=== PATIENT | male | born 1935 | race Caucasian/White ===

== ENCOUNTER 2017-08-28 00:36 | Inpatient (IN) | payer MEDICARE, BC ==
[2017-08-28 01:10] LABS: CH 31.3; CHCM 33.8; HCT 45.6 % (39.0-53.0); HDW 2.18; MCH 30.6 pg (25.0-35.0); MCHC 32.9 g/dL (31.0-37.0); MCV 92.9 fL (80.0-100.0); Mean Platelet Volume 7.6; RBC 4.91 m/uL (4.30-5.90); RDW 15.5 % (11.5-15.5); WBC 11.3 k/uL (3.8-10.6)
--- NOTE | 2017-08-28 01:15 | ED ---
General Adult HPI - General Chief complaint: Chest Pain Stated complaint: abd pain,chest pain Time Seen by Provider: 08/28/17 00:40 Source: patient, family, RN notes reviewed Mode of arrival: wheelchair Limitations: no limitations - History of Present Illness Initial comments: This is an 10-year-old male who presents emergency department with past history significant for CVA. Patient has a difficult time speaking since he's had his stroke. He has a very poor historian because of this. According to the son he woke up tonight complaining of some abdominal discomfort and according to son seems somewhat short of breath. Patient continues to state he has some upper abdominal discomfort. Patient denies any nausea or vomiting patient denies any diarrhea. Patient states the pain is not that bad at this time. Patient states he still feels a little short of breath. Patient denies any fever chills or cough. Patient denies headache patient denies numbness weakness. - Related Data Allergies Allergy/AdvReac Type Severity Reaction Status Date / Time No Known Allergies Allergy Verified 08/28/17 00:46 Review of Systems ROS Statement: Those systems with pertinent positive or pertinent negative responses have been documented in the HPI. ROS Other: All systems not noted in ROS Statement are negative. Past Medical History Past Medical History: Chest Pain / Angina, CVA/TIA, Myocardial Infarction ([place]) History of Any Multi-Drug Resistant Organisms: None Reported Past Surgical History: Heart Catheterization With Stent Past Psychological History: Depression Smoking Status: Former smoker General Exam - General Exam Comments Initial Comments: GENERAL: Patient is well-developed and well-nourished. Patient is nontoxic and well- hydrated and is in mild distress. ENT: Neck is soft and supple. No significant lymphadenopathy is noted. Oropharynx is clear. Moist mucous membranes. Neck has full range of motion without eliciting any pain. EYES: The sclera were anicteric and conjunctiva were pink and moist. Extraocular movements were intact and pupils were equal round and reactive to light. Eyelids were unremarkable. PULMONARY: Unlabored respirations. Good breath sounds bilaterally. No audible rales rhonchi or wheezing was noted. CARDIOVASCULAR: There is a regular rate and rhythm without any murmurs gallops or rubs. ABDOMEN: Soft and nontender with normal bowel sounds. No palpable organomegaly was noted. There is no palpable pulsatile mass. SKIN: Skin is clear with no lesions or rashes and otherwise unremarkable. NEUROLOGIC: Patient is alert and oriented x3. Cranial nerves II through XII are grossly intact. Motor and sensory are also intact. Patient has partial expressive aphasia. Symmetrical smile. MUSCULOSKELETAL: Normal extremities with adequate strength and full range of motion. No lower extremity swelling or edema. No calf tenderness. LYMPHATICS: No significant lymphadenopathy is noted PSYCHIATRIC: Patient seems moderately anxious Limitations: no limitations Course Vital Signs 08/28/17 08/28/17 08/28/17 00:40 00:52 01:46 Temperature 96.9 F L Pulse Rate 75 61 Pulse Rate [ 77 [employer] ] Respiratory 24 22 18 Rate Blood Pressure 165/78 147/76 O2 Sat by Pulse 99 97 Oximetry 08/28/17 08/28/17 02:00 03:00 Temperature 97.7 F Pulse Rate 98 70 Pulse Rate [ [employer] ] Respiratory 18 20 Rate Blood Pressure 144/65 173/83 O2 Sat by Pulse 93 L 97 Oximetry Medical Decision Making - Medical Decision Making EKG shows normal sinus rhythm at 67 bpm SC interval is 182 QRS is 84 Q-T intervals 418 QTC is 441 per patient's EKG shows no ST segment elevation or depression no T-wave abnormalities are noted CAT scan of the abdomen and pelvis shows multiple partially calcified gallstones with vacuum class the wall of the gallbladder appears thickened there is also. Cholecystic gallbladder fossa fluid. Looks like possible cholecystitis - Lab Data Result diagrams: 08/28/17 00:48 08/28/17 00:48 Lab Results 08/28/17 08/28/17 08/28/17 Range/Units 00:48 00:48 00:48 WBC 11.3 H (3.8-10.6) k/uL RBC 4.91 (4.30-5.90) m/uL Hgb 15.0 (13.0-17.5) gm/dL Hct 45.6 (39.0-53.0) % MCV 92.9 (80.0-100.0) fL MCH 30.6 (25.0-35.0) pg MCHC 32.9 (31.0-37.0) g/dL RDW 15.5 (11.5-15.5) % Plt Count 344 (150-450) k/uL PT 10.9 (9.0-12.0) sec INR 1.1 (<1.2) APTT 23.3 (22.0-30.0) sec Sodium 136 L (137-145) mmol/L Potassium 3.7 (3.5-5.1) mmol/L Chloride 98 (98-107) mmol/L Carbon Dioxide 22 (22-30) mmol/L Anion Gap 16 mmol/L BUN 12 (9-20) mg/dL Creatinine 0.70 (0.66-1.25) mg/dL Est GFR (MDRD) Af Amer >60 (>60 ml/min/1.73 sqM) Est GFR (MDRD) Non-Af >60 (>60 ml/min/1.73 sqM) Glucose 111 H (74-99) mg/dL Calcium 9.7 (8.4-10.2) mg/dL Magnesium 2.0 (1.6-2.3) mg/dL Total Bilirubin 0.9 (0.2-1.3) mg/dL AST 21 (17-59) U/L ALT 44 (21-72) U/L Alkaline Phosphatase 105 (38-126) U/L Troponin I (0.000-0.034) ng/mL Total Protein 7.2 (6.3-8.2) g/dL Albumin 4.4 (3.5-5.0) g/dL Amylase (30-110) U/L Lipase (23-300) U/L 08/28/17 08/28/17 Range/Units 00:48 00:48 WBC (3.8-10.6) k/uL RBC (4.30-5.90) m/uL Hgb (13.0-17.5) gm/dL Hct (39.0-53.0) % MCV (80.0-100.0) fL MCH (25.0-35.0) pg MCHC (31.0-37.0) g/dL RDW (11.5-15.5) % Plt Count (150-450) k/uL PT (9.0-12.0) sec INR (<1.2) APTT (22.0-30.0) sec Sodium (137-145) mmol/L Potassium (3.5-5.1) mmol/L Chloride (98-107) mmol/L Carbon Dioxide (22-30) mmol/L Anion Gap mmol/L BUN (9-20) mg/dL Creatinine (0.66-1.25) mg/dL Est GFR (MDRD) Af Amer (>60 ml/min/1.73 sqM) Est GFR (MDRD) Non-Af (>60 ml/min/1.73 sqM) Glucose (74-99) mg/dL Calcium (8.4-10.2) mg/dL Magnesium (1.6-2.3) mg/dL Total Bilirubin (0.2-1.3) mg/dL AST (17-59) U/L ALT (21-72) U/L Alkaline Phosphatase (38-126) U/L Troponin I <0.012 (0.000-0.034) ng/mL Total Protein (6.3-8.2) g/dL Albumin (3.5-5.0) g/dL Amylase 72 (30-110) U/L Lipase 99 (23-300) U/L Disposition Clinical Impression: Cholecystitis, acute Disposition: ADMITTED IP TO THIS [facility] Referrals: Nonstaff,Physician [Primary Care Provider] - 1-2 days Time of Disposition: 03:53
[2017-08-28 01:19] LABS: ALT 44 U/L (21-72); AST 21 U/L (17-59); Alkaline Phosphatase 105 U/L (38-126); Anion Gap 16 mmol/L; Blood Urea Nitrogen 12 mg/dL (9-20); Calcium 9.7 mg/dL (8.4-10.2); Carbon Dioxide 22 mmol/L (22-30); Chloride 98 mmol/L (98-107); Glucose 111 mg/dL (74-99); Non-African American GFR(MDRD) >60 (>60 ml/min/1.73 sqM); Potassium 3.7 mmol/L (3.5-5.1); Sodium 136 mmol/L (137-145); Total Bilirubin 0.9 mg/dL (0.2-1.3); Total Protein 7.2 g/dL (6.3-8.2)
[2017-08-28 01:20] LABS: INR 1.1 (<1.2); Partial Thromboplastin Time 23.3 sec (22.0-30.0); Prothrombin Time 10.9 sec (9.0-12.0)
[2017-08-28 01:28] LABS: Amylase 72 U/L (30-110)
--- NOTE | 2017-08-28 01:48 | XR ---
History: Reason: Pain Exam: XR CXR 2 VIEWS Comparison: None available FINDINGS: The lungs are clear. The cardiac and mediastinal contours are within limits. The visualized osseous structures appear unremarkable. IMPRESSION: No evidence of acute disease.
[2017-08-28] MEDS ORDERED: RX INFO: IV CONTRAST WAS GIVEN 1 EACH MISC MISCELLANE PRN (02:28)
--- NOTE | 2017-08-28 03:40 | CT ---
History: Reason: Pain Exam: CT ABDOMEN + PELVIS With Contrast Axial images through the abdomen and pelvis following administration of 100 cc of Omnipaque 300 contrast intravenously with multiplanar reformatted images Technique more: CTDI is highest 6.30 mGy and DLP is 476.10 mGy-cm. Technique more: This CT exam was performed using one or more of the following dose reduction techniques: automated exposure control, adjustment of the mA and/or kV according to patient size, and/or use of iterative reconstruction technique. Comparison: None available FINDINGS: 3 mm nonspecific subpleural pulmonary nodule left lower lobe image 9. Aortoiliac atherosclerotic change with soft and calcific plaque formation. No evidence of aneurysm or dissection. No retroperitoneal hemorrhage. The liver, adrenal glands, left kidney, spleen and pancreas appear within limits. No bowel dilation or free air. Diverticulosis without diverticulitis. The prostate appears mildly heterogeneous and lobular towards the neck of the bladder and measures 5.3 cm in width. No free fluid. The gallbladder is prominent in size and contains a couple of partially calcified gallstones with vacuum clefts. The wall appears mildly thickened and there may be trace pericholecystic gallbladder fossa fluid for example coronal 25 and 22 with stone near the neck of the gallbladder, correlate for possible cholecystitis. Adjacent clarisa hepatis nodes with mild adjacent haze, edema appear nonenlarged. There appears to be possible high-grade narrowing and soft plaque formation at the origin of the right renal artery although limited by 5 mm collimation. Diffuse atrophy of the right kidney. There is note of delay of the right renal nephrogram without hydronephrosis or perinephric stranding. No evidence of ureteral or bladder stone identified. Multilevel spondylosis/discogenic change with bilateral areas of foraminal stenosis. IMPRESSION: The gallbladder is prominent in size and contains a couple of partially calcified gallstones with vacuum clefts. The wall appears mildly thickened and there may be trace pericholecystic gallbladder fossa fluid for example coronal 25 and 22 with stone near the neck of the gallbladder, correlate for possible cholecystitis. Adjacent clarisa hepatis nodes with mild adjacent haze, edema appear nonenlarged. 3 mm nonspecific subpleural pulmonary nodule left lower lobe image 9. There appears to be possible high-grade narrowing and soft plaque formation at the origin of the right renal artery although limited by 5 mm collimation. Diffuse atrophy of the right kidney. There is note of delay of the right renal nephrogram without hydronephrosis or perinephric stranding. No evidence of ureteral or bladder stone identified. Aortoiliac atherosclerotic change with soft and calcific plaque formation. No evidence of aneurysm or dissection. No retroperitoneal hemorrhage. Diverticulosis without diverticulitis. [employer] 08/28/17 03:47 Verify Receipt Verified receipt with CINDY Pete, given to Dr. Reed on 08/28 03:47 (-04:00)
[2017-08-28] MEDS ORDERED: SODIUM CHLORIDE 0.9% 1,000 ML IV ONE (03:56)
[2017-08-28] MEDS ORDERED: PIPERACILLIN-TAZOBACTAM 3.375 GM in DEXTROSE/WATER 1 50ML.BAG IVPB STA (03:56)
[2017-08-28 04:23] VITALS: RESP 17
[2017-08-28 05:05] VITALS: BMI 19.1
[2017-08-28 08:13] VITALS: BP 108/61; PULSE 68; TEMP 98
--- NOTE | 2017-08-28 09:49 | P.GSHP ---
History of Present Illness H&P Date: 08/28/17 Chief Complaint: Abdominal pain The patient's a 82-year-old man who presented to the emergency department with abdominal pain. The pain evidently started on Thursday morning when he awoke. It got worse so he came into the emergency department. He has not had pain like this in the past. Denies any nausea or vomiting, no fevers or chills. The pain is improved this morning. He's never had any problems with pain with eating greasy or fatty foods. He does have some problems with constipation. This is occurred since he had a CVA earlier in the year. He is on many new medications. He does not take anything for the constipation. He has not had a colonoscopy in about 10 years. No blood in the stools or dark tarry stools. No family history of GI malignancy or inflammatory bowel disease. - Review of Systems All systems: negative - Neurological Neurological: Reports aphasia (He has some expressive aphasia but appears to answer appropriately) Past Medical History Past Medical History: Chest Pain / Angina, CVA/TIA, Myocardial Infarction ([place]) Last Myocardial Infarction Date:: 02/06/14 History of Any Multi-Drug Resistant Organisms: None Reported Past Surgical History: Heart Catheterization With Stent Date of Last Stent Placement:: 02/08/14 Past Psychological History: Depression Smoking Status: Former smoker Medications and Allergies Home Medications Medication Instructions Recorded Confirmed Type Aspirin EC [Ecotrin Low Dose] 81 mg PO DAILY 08/28/17 08/28/17 History Atorvastatin [Lipitor] 80 mg PO HS 08/28/17 08/28/17 History Clopidogrel Bisulfate [Plavix] 75 mg PO DAILY 08/28/17 08/28/17 History Lisinopril [Zestril] 20 mg PO HS 08/28/17 08/28/17 History Sertraline [Zoloft] 50 mg PO DAILY 08/28/17 08/28/17 History amLODIPine [Norvasc] 5 mg PO BID 08/28/17 08/28/17 History hydrALAZINE HCL [Hydralazine HCl] 25 mg PO TID 08/28/17 08/28/17 History Allergies Allergy/AdvReac Type Severity Reaction Status Date / Time No Known Allergies Allergy Verified 08/28/17 09:03 Surgical - Exam Osteopathic Statement: *. No significant issues noted on an osteopathic structural exam other than those noted in the History and Physical/Consult. Vital Signs Temp Pulse Resp BP Pulse Ox 96.9 F L 75 24 165/78 99 08/28/17 00:40 08/28/17 00:40 08/28/17 00:40 08/28/17 00:40 08/28/17 00:40 - General well developed, well nourished, no distress - Eyes normal ocular movement - ENT normal mucosa, no hearing loss - Neck trachea midline - Respiratory normal respiratory effort, clear to auscultation - Cardiovascular Rhythm: regular - Abdomen Abdomen: soft, no tender, bowel sounds, no guarding, no rigid, no rebound, no distended - Neurologic other (Hesitancy with speaking) Results - Labs 08/28/17 00:48 08/28/17 00:48 Abnormal Lab Results - Last 24 Hours (Table) 08/28/17 08/28/17 Range/Units 00:48 00:48 WBC 11.3 H (3.8-10.6) k/uL Sodium 136 L (137-145) mmol/L Glucose 111 H (74-99) mg/dL Diabetes panel 08/28/17 Range/Units 00:48 Sodium 136 L (137-145) mmol/L Potassium 3.7 (3.5-5.1) mmol/L Chloride 98 (98-107) mmol/L Carbon Dioxide 22 (22-30) mmol/L BUN 12 (9-20) mg/dL Creatinine 0.70 (0.66-1.25) mg/dL Glucose 111 H (74-99) mg/dL Calcium 9.7 (8.4-10.2) mg/dL AST 21 (17-59) U/L ALT 44 (21-72) U/L Alkaline Phosphatase 105 (38-126) U/L Total Protein 7.2 (6.3-8.2) g/dL Albumin 4.4 (3.5-5.0) g/dL Calcium panel 08/28/17 Range/Units 00:48 Calcium 9.7 (8.4-10.2) mg/dL Albumin 4.4 (3.5-5.0) g/dL Pituitary panel 08/28/17 Range/Units 00:48 Sodium 136 L (137-145) mmol/L Potassium 3.7 (3.5-5.1) mmol/L Chloride 98 (98-107) mmol/L Carbon Dioxide 22 (22-30) mmol/L BUN 12 (9-20) mg/dL Creatinine 0.70 (0.66-1.25) mg/dL Glucose 111 H (74-99) mg/dL Calcium 9.7 (8.4-10.2) mg/dL Adrenal panel 08/28/17 Range/Units 00:48 Sodium 136 L (137-145) mmol/L Potassium 3.7 (3.5-5.1) mmol/L Chloride 98 (98-107) mmol/L Carbon Dioxide 22 (22-30) mmol/L BUN 12 (9-20) mg/dL Creatinine 0.70 (0.66-1.25) mg/dL Glucose 111 H (74-99) mg/dL Calcium 9.7 (8.4-10.2) mg/dL Total Bilirubin 0.9 (0.2-1.3) mg/dL AST 21 (17-59) U/L ALT 44 (21-72) U/L Alkaline Phosphatase 105 (38-126) U/L Total Protein 7.2 (6.3-8.2) g/dL Albumin 4.4 (3.5-5.0) g/dL - Imaging CT scan - abdomen: report reviewed, image reviewed Assessment and Plan (1) Abdominal pain Status: Acute (2) Cholelithiasis Status: Acute (3) CVA (cerebral vascular accident) Status: Acute (4) History of myocardial infarction Status: Acute (5) Obstipation Status: Acute Plan: I doubt the patient has acute cholecystitis. I will check the ultrasound report. There is significant retained stool within the entire colon seen on CAT scan. This is likely the source of the pain. Start him on a diet and give him a laxative. If he is doing well later this afternoon and I will discharge him and follow up as outpatient regarding the gallstones.
[2017-08-28 09:52] LABS: CH 30.4; HCT 44.3 % (39.0-53.0); HGB 14.5 gm/dL (13.0-17.5); MCH 31.2 pg (25.0-35.0); MCHC 32.8 g/dL (31.0-37.0); MCV 95.2 fL (80.0-100.0); RBC 4.66 m/uL (4.30-5.90); RDW 14.8 % (11.5-15.5); WBC 12.1 k/uL (3.8-10.6)
--- NOTE | 2017-08-28 09:59 | US ---
EXAMINATION TYPE: US gallbladder DATE OF EXAM: 08/28/2017 COMPARISON: None CLINICAL HISTORY: Pain. Patient states no pain at this time. NPO. EXAM MEASUREMENTS: Liver Length: 13.0 cm Gallbladder Wall: 0.4 cm Right Kidney: 9.5 x 4.6 x 4.6 cm Pancreas: Not well visualized but appears echogenic and heterogenous. Main pancreatic duct = 3.3 mm Liver: wnl Gallbladder: Multiple echogenic foci seen with shadowing. Wall thickening. Evidence for sonographic Goodwin's sign: neg CHD: Unable to visualize Right Kidney: wnl IMPRESSION: 1. Cholelithiasis and gallbladder wall thickening with inability to visualize the common bile duct. S onographic Goodwin's sign was negative and therefore exam is equivocal for acute cholecystitis. HIDA w ith CCK scan is recommended for further evaluation to determine acute cystitis, chronic cholecystitis , or biliary dyskinesia. 2. Prominence of the main pancreatic duct, mildly dilated, for which further evaluation with CT abdom en is recommended ensure no underlying pancreatic mass.
[2017-08-28] MEDS ORDERED: MAGNESIUM CITRATE 296 ML BOTTLE PO ONE (10:00)
[2017-08-28 10:24] LABS: ALT 36 U/L (21-72); AST 22 U/L (17-59); Alkaline Phosphatase 88 U/L (38-126); Anion Gap 15 mmol/L; Blood Urea Nitrogen 12 mg/dL (9-20); Calcium 9.8 mg/dL (8.4-10.2); Carbon Dioxide 20 mmol/L (22-30); Chloride 102 mmol/L (98-107); Glucose 107 mg/dL (74-99); Non-African American GFR(MDRD) >60 (>60 ml/min/1.73 sqM); Potassium 5.3 mmol/L (3.5-5.1); Sodium 137 mmol/L (137-145); Total Bilirubin 1.2 mg/dL (0.2-1.3); Total Protein 6.8 g/dL (6.3-8.2)
[2017-08-28] MEDS ORDERED: PIPERACILLIN-TAZOBACTAM 3.375 GM in DEXTROSE/WATER 1 50ML.BAG IVPB SCH (16:00)
== END 2017-08-28 14:27 | disposition home or self-care (01) | DRG 392 ==
LOC: EC 00:36 → 3SUR 03:59
PROVIDERS: ADMIT Surgery; ATTEND Surgery
DX: K59.00 Constipation, unspecified (principal); F32.9 Major depressive disorder, single episode, unspecified; K80.20 Calculus of gallbladder without cholecystitis without obstruction; I69.328 Other speech and language deficits following cerebral infarction; I25.2 Old myocardial infarction; Z79.899 Other long term (current) drug therapy; Z79.82 Long term (current) use of aspirin; Z87.891 Personal history of nicotine dependence; Z95.5 Presence of coronary angioplasty implant and graft
CPT/HCPCS: 36415; 51798; 71020; 74177; 76705; 80053; 82150; 83690; 83735; 84484; 85027; 85610; 85730; 93005; 96365; 99285

== ENCOUNTER 2017-09-02 07:05 | Inpatient (IN) | payer MEDICARE, BC ==
[2017-09-02] MEDS ORDERED: SODIUM CHLORIDE 0.9% 1,000 ML IV STA (07:53)
[2017-09-02] MEDS ORDERED: FAMOTIDINE 20 MG/2 ML VIAL IV STA (07:53)
[2017-09-02] MEDS ORDERED: MORPHINE SULFATE 4 MG/ML SYRINGE IV STA (07:53)
--- NOTE | 2017-09-02 08:00 | ED ---
General Adult HPI - General Chief complaint: Back Pain/Injury Stated complaint: Low Back Pain Time Seen by Provider: 09/02/17 07:39 Source: patient, family, RN notes reviewed Mode of arrival: wheelchair Limitations: physical limitation - History of Present Illness Initial comments: Patient is a pleasant 82-year-old male presenting to the emergency Department with right upper side pain. Patient has had symptoms for the past week. Patient was in the emergency department last week and diagnosed with constipation and gallstones. Patient is having continued symptoms. Patient no longer feels constipated. Discomfort is right upper abdomen and back. No nausea or vomiting. No diarrhea. No fevers. - Related Data Home Medications Medication Instructions Recorded Confirmed Aspirin EC [Ecotrin Low Dose] 81 mg PO DAILY 08/28/17 09/02/17 Atorvastatin [Lipitor] 80 mg PO HS 08/28/17 09/02/17 Clopidogrel Bisulfate [Plavix] 75 mg PO DAILY 08/28/17 09/02/17 Lisinopril [Zestril] 20 mg PO HS 08/28/17 09/02/17 Sertraline [Zoloft] 50 mg PO DAILY 08/28/17 09/02/17 amLODIPine [Norvasc] 5 mg PO BID 08/28/17 09/02/17 hydrALAZINE HCL [Hydralazine HCl] 25 mg PO TID 08/28/17 09/02/17 Previous Rx's Medication Instructions Recorded Polyethylene Glycol 3350 [Miralax] 17 gm PO DAILY #255 gm 08/28/17 Allergies Allergy/AdvReac Type Severity Reaction Status Date / Time No Known Allergies Allergy Verified 09/02/17 07:43 Review of Systems ROS Statement: Those systems with pertinent positive or pertinent negative responses have been documented in the HPI. ROS Other: All systems not noted in ROS Statement are negative. Constitutional: Denies: fever Eyes: Denies: eye pain ENT: Denies: ear pain Respiratory: Denies: cough Cardiovascular: Denies: chest pain Endocrine: Denies: fatigue Gastrointestinal: Reports: abdominal pain. Denies: nausea, vomiting Genitourinary: Denies: dysuria Musculoskeletal: Reports: back pain Skin: Denies: rash Neurological: Denies: weakness Past Medical History Past Medical History: Chest Pain / Angina, CVA/TIA, Myocardial Infarction ([place]) Last Myocardial Infarction Date:: 02/06/14 History of Any Multi-Drug Resistant Organisms: None Reported Past Surgical History: Heart Catheterization With Stent Date of Last Stent Placement:: 02/08/14 Past Psychological History: Depression Smoking Status: Former smoker Past Alcohol Use History: None Reported Past Drug Use History: None Reported General Exam Limitations: no limitations General appearance: alert, in no apparent distress Head exam: Present: atraumatic Eye exam: Present: normal appearance, PERRL ENT exam: Present: normal oropharynx Neck exam: Present: normal inspection Respiratory exam: Present: normal lung sounds bilaterally. Absent: chest wall tenderness Cardiovascular Exam: Present: regular rate, normal rhythm Expanded Peripheral pulses: 2+: Dorsalis Pedis (R), Dorsalis Pedis (L) GI/Abdominal exam: Present: soft, tenderness (Moderate tenderness in the epigastric and right upper quadrant.). Absent: distended Extremities exam: Present: normal inspection Back exam: Present: tenderness (Mild tenderness above the right CVA region.) Neurological exam: Present: alert Psychiatric exam: Present: normal affect, normal mood Skin exam: Present: normal color Course Vital Signs 09/02/17 09/02/17 09/02/17 07:15 08:00 09:00 Temperature 97.1 F L Pulse Rate 67 61 60 Respiratory 18 24 24 Rate Blood Pressure 145/69 158/76 160/74 O2 Sat by Pulse 99 100 100 Oximetry 09/02/17 10:00 Temperature Pulse Rate 64 Respiratory 22 Rate Blood Pressure 172/81 O2 Sat by Pulse 100 Oximetry EKG Findings - EKG Comments: EKG Findings:: Normal sinus rhythm 63. OK 196. QRS 94. QT 42. QTC 462. Normal axis. Normal QRS. Normal ST-T. Medical Decision Making - Medical Decision Making Patient does not meet sepsis criteria. Case discussed in detail with Dr. Hillman who states she is going out of town soon and recommends calling Dr. coates. Case was discussed with Dr. coates who will admit and come to evaluate patient. He does recommend Unasyn. - Lab Data Result diagrams: 09/02/17 07:45 09/02/17 07:45 Lab Results 09/02/17 09/02/17 09/02/17 Range/Units 07:45 07:45 07:45 WBC 9.1 (3.8-10.6) k/uL RBC 4.58 (4.30-5.90) m/uL Hgb 14.0 (13.0-17.5) gm/dL Hct 42.6 (39.0-53.0) % MCV 92.9 (80.0-100.0) fL MCH 30.6 (25.0-35.0) pg MCHC 32.9 (31.0-37.0) g/dL RDW 15.5 (11.5-15.5) % Plt Count 320 (150-450) k/uL Neutrophils % 75 % Lymphocytes % 14 % Monocytes % 8 % Eosinophils % 2 % Basophils % 1 % Neutrophils # 6.8 (1.3-7.7) k/uL Lymphocytes # 1.2 (1.0-4.8) k/uL Monocytes # 0.7 (0-1.0) k/uL Eosinophils # 0.2 (0-0.7) k/uL Basophils # 0.1 (0-0.2) k/uL PT 11.0 (9.0-12.0) sec INR 1.1 (<1.2) APTT 23.3 (22.0-30.0) sec Sodium 136 L (137-145) mmol/L Potassium 4.0 (3.5-5.1) mmol/L Chloride 103 (98-107) mmol/L Carbon Dioxide 19 L (22-30) mmol/L Anion Gap 14 mmol/L BUN 12 (9-20) mg/dL Creatinine 0.88 (0.66-1.25) mg/dL Est GFR (MDRD) Af Amer >60 (>60 ml/min/1.73 sqM) Est GFR (MDRD) Non-Af >60 (>60 ml/min/1.73 sqM) Glucose 94 (74-99) mg/dL Calcium 9.3 (8.4-10.2) mg/dL Total Bilirubin 1.1 (0.2-1.3) mg/dL AST 24 (17-59) U/L ALT 37 (21-72) U/L Alkaline Phosphatase 99 (38-126) U/L Total Protein 6.6 (6.3-8.2) g/dL Albumin 4.0 (3.5-5.0) g/dL Amylase 56 (30-110) U/L Lipase 70 (23-300) U/L Urine Color Urine Appearance (Clear) Urine pH (5.0-8.0) Ur Specific Clear (1.001-1.035) Urine Protein (Negative) Urine Glucose (UA) (Negative) Urine Ketones (Negative) Urine Blood (Negative) Urine Nitrite (Negative) Urine Bilirubin (Negative) Urine Urobilinogen (<2.0) mg/dL Ur Leukocyte Esterase (Negative) Urine RBC (0-5) /hpf Urine WBC (0-5) /hpf Amorphous Sediment (None) /hpf Hyaline Casts (0-2) /lpf Urine Mucus (None) /hpf 09/02/17 Range/Units 10:00 WBC (3.8-10.6) k/uL RBC (4.30-5.90) m/uL Hgb (13.0-17.5) gm/dL Hct (39.0-53.0) % MCV (80.0-100.0) fL MCH (25.0-35.0) pg MCHC (31.0-37.0) g/dL RDW (11.5-15.5) % Plt Count (150-450) k/uL Neutrophils % % Lymphocytes % % Monocytes % % Eosinophils % % Basophils % % Neutrophils # (1.3-7.7) k/uL Lymphocytes # (1.0-4.8) k/uL Monocytes # (0-1.0) k/uL Eosinophils # (0-0.7) k/uL Basophils # (0-0.2) k/uL PT (9.0-12.0) sec INR (<1.2) APTT (22.0-30.0) sec Sodium (137-145) mmol/L Potassium (3.5-5.1) mmol/L Chloride (98-107) mmol/L Carbon Dioxide (22-30) mmol/L Anion Gap mmol/L BUN (9-20) mg/dL Creatinine (0.66-1.25) mg/dL Est GFR (MDRD) Af Amer (>60 ml/min/1.73 sqM) Est GFR (MDRD) Non-Af (>60 ml/min/1.73 sqM) Glucose (74-99) mg/dL Calcium (8.4-10.2) mg/dL Total Bilirubin (0.2-1.3) mg/dL AST (17-59) U/L ALT (21-72) U/L Alkaline Phosphatase (38-126) U/L Total Protein (6.3-8.2) g/dL Albumin (3.5-5.0) g/dL Amylase (30-110) U/L Lipase (23-300) U/L Urine Color Yellow Urine Appearance Cloudy (Clear) Urine pH 7.0 (5.0-8.0) Ur Specific Clear 1.010 (1.001-1.035) Urine Protein Negative (Negative) Urine Glucose (UA) Negative (Negative) Urine Ketones Negative (Negative) Urine Blood Negative (Negative) Urine Nitrite Negative (Negative) Urine Bilirubin Negative (Negative) Urine Urobilinogen <2.0 (<2.0) mg/dL Ur Leukocyte Esterase Negative (Negative) Urine RBC 1 (0-5) /hpf Urine WBC 2 (0-5) /hpf Amorphous Sediment Moderate H (None) /hpf Hyaline Casts 27 H (0-2) /lpf Urine Mucus Rare H (None) /hpf - Radiology Data Radiology results: report reviewed (Ultrasound shows redemonstrated cholelithiasis and gallbladder oh wall thickening without common duct dilation. Prominence of the pancreatic duct.) Disposition Clinical Impression: Abdominal pain, Cholelithiasis Disposition: ADMITTED IP TO THIS [facility] Referrals: Nonstaff,Physician [Primary Care Provider] - 1-2 days Decision Time: 10:43
[2017-09-02 08:12] LABS: Basophils # (A) 0.1 k/uL (0-0.2); Basophils % (A) 1 %; CH 31.8; CHCM 34.4; Eosinophils # (A) 0.2 k/uL (0-0.7); Eosinophils % (A) 2 %; HCT 42.6 % (39.0-53.0); HDW 2.21; Luc # (Auto) 0.14; Luc % (Auto) 2; Lymphocytes # (A) 1.2 k/uL (1.0-4.8); Lymphocytes % (A) 14 %; MCH 30.6 pg (25.0-35.0); MCHC 32.9 g/dL (31.0-37.0); MCV 92.9 fL (80.0-100.0); Mean Platelet Volume 7.4; Monocytes # (A) 0.7 k/uL (0-1.0); Monocytes % (A) 8 %; Neutrophils # (A) 6.8 k/uL (1.3-7.7); Neutrophils % (A) 75 %; RBC 4.58 m/uL (4.30-5.90); RDW 15.5 % (11.5-15.5); WBC 9.1 k/uL (3.8-10.6); WBC (Perox) 9.47
[2017-09-02 08:25] LABS: ALT 37 U/L (21-72); AST 24 U/L (17-59); Alkaline Phosphatase 99 U/L (38-126); Amylase 56 U/L (30-110); Anion Gap 14 mmol/L; Blood Urea Nitrogen 12 mg/dL (9-20); Calcium 9.3 mg/dL (8.4-10.2); Carbon Dioxide 19 mmol/L (22-30); Chloride 103 mmol/L (98-107); Glucose 94 mg/dL (74-99); Non-African American GFR(MDRD) >60 (>60 ml/min/1.73 sqM); Sodium 136 mmol/L (137-145); Total Bilirubin 1.1 mg/dL (0.2-1.3); Total Protein 6.6 g/dL (6.3-8.2)
[2017-09-02 08:27] LABS: INR 1.1 (<1.2); Partial Thromboplastin Time 23.3 sec (22.0-30.0)
--- NOTE | 2017-09-02 08:45 | XR ---
EXAMINATION TYPE: XR chest 2V DATE OF EXAM: 09/02/2017 COMPARISON: 08/28/2017 HISTORY: 82-year-old male back and chest pain, shortness of breath TECHNIQUE: AP and lateral views FINDINGS: Heart is upper limits of normal in size. Mild atherosclerotic arch calcifications. Some strandy atele ctasis in the lower lungs. No consolidation or pleural effusion. IMPRESSION: No acute cardiopulmonary process.
--- NOTE | 2017-09-02 08:47 | XR ---
EXAMINATION TYPE: XR KUB DATE OF EXAM: 09/02/2017 CLINICAL DATA: 82 year-old male abdominal pain, PHH COMPARISON: None FINDINGS: Lung bases are clear. No evidence for free intraperitoneal air. There are some small air-fluid levels within the hepatic flexure and within small bowel loops in the right mid abdomen. Scattered air is seen extending distally into the rectum. Mild overall stool burde n. No dilated small bowel or differential air-fluid levels identified. No suspicious calcifications seen. IMPRESSION: 1. Overall nonobstructive bowel gas pattern. No free air. 2. Small air-fluid levels at the hepatic flexure and in the right mid abdomen suggest a regional ileu s or enteritis.
--- NOTE | 2017-09-02 09:42 | US ---
EXAMINATION TYPE: US gallbladder DATE OF EXAM: 09/02/2017 COMPARISON: Ultrasound and CT abdomen pelvis dated 08/28/2017 CLINICAL HISTORY: Pain. EXAM MEASUREMENTS: Liver Length: 13.2 cm Gallbladder Wall: 0.6 cm CBD: 0.4 cm Right Kidney: 9.9 x 3.8 x 4.3 cm Patient in enormous amount of pain, he had difficulty holding his breath and tolerating exam, making exam somewhat technically difficult. Pancreas: partially obscured by bowel gas, duct measures 3mm Liver: wnl Gallbladder: cholelithiasis, wall somewhat thick, neck difficult to visualized due to shadowing from stones and patient tolerance Evidence for sonographic Goodwin's sign: patient seemed to have entire RUQ pain CBD: very limited visualization Right Kidney: No hydronephrosis or masses seen IMPRESSION: 1. Redemonstration of cholelithiasis and gallbladder wall thickening without common bile duct dilatio n. Again HIDA scan with CCK is recommended for further evaluation as the patient describes right uppe r quadrant pain and the examination is again somewhat equivocal for acute cholecystitis unchanged fro m the prior ultrasound and CT dated 08/28/2017. 2. Sonographic prominence of the pancreatic duct is redemonstrated, however no pancreatic mass was vi sualized on the CT abdomen and pelvis dated 08/28/2017 and this finding could relate to sequela of chr onic pancreatitis despite no CT evidence.
[2017-09-02] MEDS ORDERED: HYDROmorphone 1 MG/ML 1 ML SYRINGE IVP STA (09:58)
[2017-09-02 10:20] LABS: Amorphous Sediment,Urine Moderate /hpf; Appearance,Urine Cloudy (Clear); Bilirubin,Urine Negative (Negative); Glucose,Urine (UA) Negative (Negative); Ketones,Urine Negative (Negative); Leukocyte Esterase,Urine Negative (Negative); Mucus,Urine Rare /hpf; Nitrite,Urine Negative (Negative); Particle Count 9703; Protein,Urine Negative (Negative); RBC,Urine 1 /hpf (0-5); UA Billing (MACRO vs. MICRO) MICRO; Urobilinogen,Urine <2.0 mg/dL (<2.0); WBC,Urine 2 /hpf (0-5)
[2017-09-02] MEDS ORDERED: HYDROmorphone 1 MG/ML 1 ML SYRINGE IV PRN (10:44)
[2017-09-02] MEDS ORDERED: NALOXONE 0.4 MG/ML 1 ML VIAL IV PRN (10:44)
[2017-09-02] MEDS: AMPICILLIN-SULBACTAM 3 GM in SODIUM CHLORIDE 0.9% 100 ML IVPB SCH ×2 (11:35→19:59)
[2017-09-02] MEDS: SODIUM CHLORIDE 0.9% 1,000 ML IV SCH (12:45)
[2017-09-02 13:29] VITALS: BMI 19.6
[2017-09-02] MEDS ORDERED: HYDROmorphone 0.5 MG/0.5 ML SYRINGE IVP PRN (17:03)
[2017-09-02] MEDS: hydrALAZINE HCL 25 MG TAB PO SCH ×2 (17:35→23:03)
[2017-09-02] MEDS ORDERED: ARTIFICIAL TEARS-HYPROMELLOSE DROPS 15 ML BTL BOTH EYES PRN (17:47)
[2017-09-02] MEDS ORDERED: LISINOPRIL 20 MG TAB PO SCH (21:00)
[2017-09-02] MEDS ORDERED: ATORVASTATIN 80 MG TAB PO SCH (21:00)
--- NOTE | 2017-09-02 21:33 | CONS ---
CONSULTATION REASON FOR CONSULTATION: Advice regarding hypertension and hyperlipidemia requested by surgery. HISTORY OF PRESENT ILLNESS: This 82-year-old gentleman with a past CVA, TIA, and hypertension, hyperlipidemia, history of myocardial infarction being followed by primary physician in [place] apparently was complaining of abdominal pain. The patient came recently and was found to have cholelithiasis. The patient also had significant right upper quadrant pain which was going on for several weeks and the patient came to [facility] and admitted for further evaluation and treatment. There is no history of fever, rigors. No headache, loss of consciousness or seizures. PAST MEDICAL HISTORY: History of CVA, TIA, hypertension, hyperlipidemia, myocardial infarction, history of expressive dysphasia, carotid stent. MEDICATIONS: 1. Hydralazine 25 mg t.i.d. 2. Norvasc 5 mg p.o. b.i.d. 3. Zoloft 50 mg daily. 4. MiraLAX 17 g daily. 5. Zestril 20 mg daily. 6. Plavix 70 mg. 7. Lipitor 80 mg. 8. Ecotrin 81 mg daily. ALLERGIES: None. FAMILY HISTORY: No history of heart disease or strokes in the family. SOCIAL HISTORY: No history of current smoking or alcohol intake. Previous history of smoking. REVIEW OF SYSTEMS: ENT: Diminished hearing and vision. CARDIOVASCULAR: No angina. Respiration: No cough. GI: As mentioned earlier. no dysuria or retention. Nervous System as mentioned earlier. Patient has . Allergies/Immunology: No asthma or hayfever. Musculoskeletal as mentioned earlier. Hematology/Oncology: No history of anemia. Endocrine no history of diabetes or hypothyroidism. Constitutional: As mentioned earlier. Dermatology negative. Rheumatology: Negative. Psychiatric: As mentioned earlier. PHYSICAL EXAMINATION: Alert oriented times three. Pulse 59, blood pressure 130/70, respiration 16, temperature 97.4, pulse ox 98% room air. HEENT: Conjunctivae normal. NECK: No jugular venous distention. CARDIOVASCULAR: S1, S2 muffled. Respiration: Breath sounds diminished at the bases, no rhonchi, no crackles. ABDOMEN: Soft. Mild diffuse discomfort in the right upper quadrant. No guarding. No rigidity. No mass palpable. Legs no edema. No swelling. Nervous system: Higher functions as mentioned. Moves all 4 limbs. No focal motor or sensory deficits. Lymphatics: No lymph nodes palpable in the neck, axillae or groin. Skin: No ulcer, rash or bleeding. LABS: CBC within normal limits. INR is 1.1, sodium 136. ASSESSMENT: 1. Acute abdominal pain with cholelithiasis with possible cholecystitis. 2. Hyponatremia. 3. History of previous stroke with dysphasia and carotid stent. 4. Hypertension. 5. Hyperlipidemia. 6. History of myocardial infarction. 7. History of depression. RECOMMENDATION AND DISCUSSION: In this 82-year-old gentleman with a past history of multiple medical problems, at this time, I recommend continue current medications, management. Symptomatic treatment. Resume the home medications. The patient is medically stable and will be cleared for any surgery if the duration of plavix post stent is deemed appropriate. Otherwise we will follow the patient closely. Thank you for letting us participate in the care of this patient. SHIV / JIMMY: [id number] / ALEXIA
[2017-09-02] MEDS: amLODIPine 5 MG TAB PO SCH (21:37)
[2017-09-02] MEDS: HEPARIN SODIUM,PORCINE 5,000 UNIT/ML 1 ML VIAL SQ SCH (21:37)
--- NOTE | 2017-09-02 21:37 | P.GSHP ---
History of Present Illness H&P Date: 09/02/17 Chief Complaint: Abdominal Pain This is an 82 y/o male with history of recent CVA in March who presents with abdominal pain that has been going on for almost a week now. He has expressive aphasia from his recent CVA and has a difficult time finding words. His son helped with the history. He was recently sent home from the hospital with constipation and abdominal pain on the . He was noted to have several large gallstones and some GB wall thickening on CT and US. He states that his pain is mostly in his back and wraps around to the front. It initially got better when he was sent home but began getting worse so he came back to the hospital. Since his admission however he states he is feeling somewhat better again. He denies any fevers or chills. Denies N/V. Had a normal BM. Denies any history of surgery on his abdomen. His medical history is significant for CVA in march of this year, [place] in 2013, HTN. He is currently taking aspirin and plavix. - Review of Systems All systems: negative Past Medical History Past Medical History: Chest Pain / Angina, CVA/TIA, Hyperlipidemia, Hypertension , Myocardial Infarction ([place]) Additional Past Medical History / Comment(s): CVA earlier in 2016 with speech affected, R arm weakness, alittle R leg weakness-pt states no difficulties swallowing but has had some constipation problems since CVA. Last Myocardial Infarction Date:: 02/06/14 History of Any Multi-Drug Resistant Organisms: None Reported Past Surgical History: Heart Catheterization With Stent Additional Past Surgical History / Comment(s): Colonoscopy, L eye cataract removal with lens implant. Past Anesthesia/Blood Transfusion Reactions: No Reported Reaction Additional Past Anesthesia/Blood Transfusion Reaction / Comment(s): Pt has never had general/spinal anesthesia. Date of Last Stent Placement:: 02/08/14 Additional Psychological History / Comment(s): Pt resides with his son. He uses a cane to ambulate. He occasionally drives and his son drives. He manages his own medications. No outside services at this time. Smoking Status: Former smoker Past Alcohol Use History: None Reported Additional Past Alcohol Use History / Comment(s): Pt states he started smoking in 1955 and quit in Mar, 2017. Past Drug Use History: None Reported - Past Family History Father Family Medical History: No Reported History Additional Family Medical History / Comment(s): Father lived to be 94 yrs old. Mother Family Medical History: No Reported History Additional Family Medical History / Comment(s): Mother lived to be 97yrs old. Medications and Allergies Home Medications Medication Instructions Recorded Confirmed Type Aspirin EC [Ecotrin Low Dose] 81 mg PO DAILY 08/28/17 09/02/17 History Atorvastatin [Lipitor] 80 mg PO HS 08/28/17 09/02/17 History Clopidogrel Bisulfate [Plavix] 75 mg PO DAILY 08/28/17 09/02/17 History Lisinopril [Zestril] 20 mg PO HS 08/28/17 09/02/17 History Polyethylene Glycol 3350 [Miralax] 17 gm PO DAILY #255 gm 08/28/17 09/02/17 Rx Sertraline [Zoloft] 50 mg PO DAILY 08/28/17 09/02/17 History amLODIPine [Norvasc] 5 mg PO BID 08/28/17 09/02/17 History hydrALAZINE HCL [Hydralazine HCl] 25 mg PO TID 08/28/17 09/02/17 History Allergies Allergy/AdvReac Type Severity Reaction Status Date / Time No Known Allergies Allergy Verified 09/02/17 07:43 Surgical - Exam Osteopathic Statement: *. No significant issues noted on an osteopathic structural exam other than those noted in the History and Physical/Consult. Vital Signs Temp Pulse Resp BP Pulse Ox 97.1 F L 67 18 145/69 99 09/02/17 07:15 09/02/17 07:15 09/02/17 07:15 09/02/17 07:15 09/02/17 07:15 - General well developed, well nourished, no distress - Eyes PERRL, normal ocular movement - ENT normal mucosa - Neck no masses - Respiratory normal expansion, normal respiratory effort - Cardiovascular Heart Rate: 70 Rhythm: regular - Abdomen soft, nontender, no rebound, no rigidity, no guarding. Goodwin sign negative. - Neurologic normal coordination, normal sensation - Psychiatric Expressive aphasia oriented to time, oriented to person Results - Labs 09/02/17 07:45 09/02/17 07:45 Abnormal Lab Results - Last 24 Hours (Table) 09/02/17 09/02/17 Range/Units 07:45 10:00 Sodium 136 L (137-145) mmol/L Carbon Dioxide 19 L (22-30) mmol/L Amorphous Sediment Moderate H (None) /hpf Hyaline Casts 27 H (0-2) /lpf Urine Mucus Rare H (None) /hpf Diabetes panel 09/02/17 Range/Units 07:45 Sodium 136 L (137-145) mmol/L Potassium 4.0 (3.5-5.1) mmol/L Chloride 103 (98-107) mmol/L Carbon Dioxide 19 L (22-30) mmol/L BUN 12 (9-20) mg/dL Creatinine 0.88 (0.66-1.25) mg/dL Glucose 94 (74-99) mg/dL Calcium 9.3 (8.4-10.2) mg/dL AST 24 (17-59) U/L ALT 37 (21-72) U/L Alkaline Phosphatase 99 (38-126) U/L Total Protein 6.6 (6.3-8.2) g/dL Albumin 4.0 (3.5-5.0) g/dL Calcium panel 09/02/17 Range/Units 07:45 Calcium 9.3 (8.4-10.2) mg/dL Albumin 4.0 (3.5-5.0) g/dL Pituitary panel 09/02/17 Range/Units 07:45 Sodium 136 L (137-145) mmol/L Potassium 4.0 (3.5-5.1) mmol/L Chloride 103 (98-107) mmol/L Carbon Dioxide 19 L (22-30) mmol/L BUN 12 (9-20) mg/dL Creatinine 0.88 (0.66-1.25) mg/dL Glucose 94 (74-99) mg/dL Calcium 9.3 (8.4-10.2) mg/dL Adrenal panel 09/02/17 Range/Units 07:45 Sodium 136 L (137-145) mmol/L Potassium 4.0 (3.5-5.1) mmol/L Chloride 103 (98-107) mmol/L Carbon Dioxide 19 L (22-30) mmol/L BUN 12 (9-20) mg/dL Creatinine 0.88 (0.66-1.25) mg/dL Glucose 94 (74-99) mg/dL Calcium 9.3 (8.4-10.2) mg/dL Total Bilirubin 1.1 (0.2-1.3) mg/dL AST 24 (17-59) U/L ALT 37 (21-72) U/L Alkaline Phosphatase 99 (38-126) U/L Total Protein 6.6 (6.3-8.2) g/dL Albumin 4.0 (3.5-5.0) g/dL - Imaging CT scan - abdomen: report reviewed, image reviewed US - abdomen: report reviewed, image reviewed Assessment and Plan (1) Abdominal pain Status: Acute Plan: I discussed with the patient and his son that this pain is likely from an acute vs. chronic cholecystitis. Secondary to the patients multiple co-morbidities and being on plavix I explained that he is at much higher risk for surgical intervention. I recommended obtaining HIDA scan, if scan is negative for acute cholecystitis he may go home and once he is medically optimized and able to safely hold the plavix we can discuss lap cholecystectomy as an outpatient. If the HIDA is positive for complete cystic duct obstruction I would recommend cholecystostomy tube be placed by IR. The family and patient were agreeable to this plan.
[2017-09-03 00:25] VITALS: PULSE 67
[2017-09-03] MEDS: AMPICILLIN-SULBACTAM 3 GM in SODIUM CHLORIDE 0.9% 100 ML IVPB SCH ×2 (04:02→11:54)
[2017-09-03] MEDS: SODIUM CHLORIDE 0.9% 1,000 ML IV SCH ×2 (06:18→11:55)
[2017-09-03 07:21] LABS: Basophils # (A) 0.1 k/uL (0-0.2); Basophils % (A) 1 %; CH 30.3; Eosinophils # (A) 0.2 k/uL (0-0.7); Eosinophils % (A) 2 %; HCT 40.6 % (39.0-53.0); HDW 2.14; HGB 13.1 gm/dL (13.0-17.5); Luc # (Auto) 0.18; Luc % (Auto) 2; Lymphocytes % (A) 11 %; MCH 30.7 pg (25.0-35.0); MCHC 32.3 g/dL (31.0-37.0); MCV 94.9 fL (80.0-100.0); Mean Platelet Volume 6.9; Monocytes # (A) 0.7 k/uL (0-1.0); Monocytes % (A) 8 %; Neutrophils # (A) 6.7 k/uL (1.3-7.7); Neutrophils % (A) 77 %; RBC 4.28 m/uL (4.30-5.90); RDW 14.4 % (11.5-15.5); WBC 8.7 k/uL (3.8-10.6)
[2017-09-03 07:37] LABS: ALT 39 U/L (21-72); AST 18 U/L (17-59); Alkaline Phosphatase 89 U/L (38-126); Amylase 46 U/L (30-110); Anion Gap 10 mmol/L; Blood Urea Nitrogen 7 mg/dL (9-20); Calcium 9.1 mg/dL (8.4-10.2); Carbon Dioxide 24 mmol/L (22-30); Chloride 105 mmol/L (98-107); Glucose 84 mg/dL (74-99); Non-African American GFR(MDRD) >60 (>60 ml/min/1.73 sqM); Potassium 5.2 mmol/L (3.5-5.1); Sodium 139 mmol/L (137-145); Total Bilirubin 1.1 mg/dL (0.2-1.3)
[2017-09-03 07:51] VITALS: BP 132/70; RESP 18; TEMP 97.8
[2017-09-03] MEDS: HEPARIN SODIUM,PORCINE 5,000 UNIT/ML 1 ML VIAL SQ SCH (08:56)
[2017-09-03] MEDS: hydrALAZINE HCL 25 MG TAB PO SCH (08:56)
[2017-09-03] MEDS: amLODIPine 5 MG TAB PO SCH (08:56)
[2017-09-03] MEDS ORDERED: PANTOPRAZOLE 40 MG/10 ML VIAL IV SCH (09:00)
[2017-09-03] MEDS ORDERED: SERTRALINE 50 MG TAB PO SCH (09:00)
--- NOTE | 2017-09-03 11:04 | NM ---
EXAMINATION TYPE: NM hepatobiliary wo EF DATE OF EXAM: 09/03/2017 COMPARISON: CT and abdominal ultrasound dated 929 and 17. HISTORY: Right upper quadrant pain and prior CT as well as ultrasound that were suggestive but equivo suzan for acute cholecystitis TECHNIQUE: After the intravenous administration of 5.59 mCi Tc 99m Mebrofenin hepatobiliary scintigra phy is performed. Immediate images post injection. FINDINGS: No radiotracer is seen within the region of the gallbladder either within 60 minutes or on the 90 min jimmie delay. Radiotracer is seen throughout the small bowel. Acute cystic duct obstruction is present a nd examination with the prior findings on CT and ultrasound of 08/28/2017. Radiotracer excretes approp riately from the hepatic parenchyma. IMPRESSION: Findings compatible with acute cholecystitis. Findings were discussed with the ordering cameron malik at approximately 10:45 AM on 09/03/2017.
--- NOTE | 2017-09-03 11:49 | P.PN ---
Subjective Progress Note Date: 09/03/17 Principal diagnosis: Chronic cholecystitis Patient had a HIDA scan performed this morning which was positive for cystic duct obstruction however patient's feeling much better today he has no pain either abdominal or back pain. He has no fevers or chills. No nausea vomiting no other complaints at this time. Objective - Vital Signs Vital signs: Vital Signs Temp 97.8 F 09/03/17 06:55 Pulse 67 09/03/17 06:55 Resp 18 09/03/17 06:55 BP 132/70 09/03/17 06:55 Pulse Ox 97 09/02/17 23:00 Intake & Output 09/02/17 09/03/17 09/03/17 18:59 06:59 18:59 Intake Total 400 1200 Output Total 250 Balance 150 1200 Weight 65.771 kg Intake: Intake, IV Titration 400 1200 Amount Ampicillin-Sulbactam 3 gm 100 200 In Sodium Chloride 0.9% 100 ml @ 100 mls/hr IVPB Q8H WANDER Rx#:[id number] Sodium Chloride 0.9% 1, 300 1000 000 ml @ 100 mls/hr IV . Q10H STA Rx#:[id number] Output: Urine 250 Other: Voiding Method Toilet Toilet Toilet # Voids 1 - Constitutional General appearance: Present: cooperative - Respiratory Details: Clear to auscultation nonlabored - Cardiovascular Rhythm: regular - Gastrointestinal Gastrointestinal Comment(s): Abdomen soft nontender nondistended - Labs CBC & Chem 7: 09/03/17 06:50 09/03/17 06:50 Labs: Abnormal Lab Results - Last 24 Hours (Table) 09/03/17 09/03/17 Range/Units 06:50 06:50 RBC 4.28 L (4.30-5.90) m/uL Potassium 5.2 H (3.5-5.1) mmol/L BUN 7 L (9-20) mg/dL Total Protein 6.0 L (6.3-8.2) g/dL Assessment and Plan (1) Abdominal pain Status: Acute Plan: Patient has a chronic cholecystitis. His pain is now resolved and his blood work is all normal with no elevated bilirubin or leukocytosis. Due to his medical comorbidities being on Plavix and his recent carotid stent 5 months ago patient will be sent home on Cipro and Flagyl with instructions to follow-up in my clinic on Thursday where we can discuss cessation of Plavix and timing of the surgery.
--- NOTE | 2017-09-03 12:58 | P.DS ---
Providers Date of admission: 09/02/17 10:44 Expected date of discharge: 09/03/17 Attending physician: Brock Khan DO Consults: 09/02/17 11:14 Consult Physician Urgent Consulting Provider: Casi Marie Consult Reason/Comments: medical care, clearance Do you want consulting provider notified?: Yes Primary care physician: Physician Nonstaff - Discharge Diagnosis(es) (1) Abdominal pain Patient was admitted on 09/02/2017 with abdominal pain likely secondary to an acute on chronic cholecystitis. His pain began feeling better on 09/03/2017 and was completely resolved. He had no leukocytosis and bilirubins were within normal limits. The patient has multiple comorbidities and is on Plavix discussion is being had with his primary care physician and neurologist to place the carotid stent secondary to his recent CVA about when he can take Plavix and when he can stop it. We'll send him home at this time on Cipro and Flagyl a 2 week supply and have him follow-up in the office for further planning on laparoscopic cholecystectomy. This was discussed with the patient and his son who were agreeable Current Visit: Yes Status: Acute Hospital Course: Patient was admitted on 09/02/2017 with abdominal pain likely secondary to an acute on chronic cholecystitis. His pain began feeling better on 09/03/2017 and was completely resolved. He had no leukocytosis and bilirubins were within normal limits. The patient has multiple comorbidities and is on Plavix discussion is being had with his primary care physician and neurologist to place the carotid stent secondary to his recent CVA about when he can take Plavix and when he can stop it. We'll send him home at this time on Cipro and Flagyl a 2 week supply and have him follow-up in the office for further planning on laparoscopic cholecystectomy. This was discussed with the patient and his son who were agreeable. He was discharged home in stable condition with instructions to follow up with me on Thursday in the clinic. He was discharged with cipro and flagyl. Patient Condition at Discharge: Stable Plan - Discharge Summary New Discharge Prescriptions: Continue hydrALAZINE HCL [Hydralazine HCl] 25 mg PO TID amLODIPine [Norvasc] 5 mg PO BID Atorvastatin [Lipitor] 80 mg PO HS Aspirin EC [Ecotrin Low Dose] 81 mg PO DAILY Sertraline [Zoloft] 50 mg PO DAILY Lisinopril [Zestril] 20 mg PO HS Clopidogrel Bisulfate [Plavix] 75 mg PO DAILY Polyethylene Glycol 3350 [Miralax] 17 gm PO DAILY #255 gm Ciprofloxacin HCl [Cipro] 500 mg PO BID #28 tab metroNIDAZOLE [Flagyl] 500 mg PO TID #42 tab Discharge Medication List Aspirin EC [Ecotrin Low Dose] 81 mg PO DAILY 08/28/17 [History] Atorvastatin [Lipitor] 80 mg PO HS 08/28/17 [History] Clopidogrel Bisulfate [Plavix] 75 mg PO DAILY 08/28/17 [History] Lisinopril [Zestril] 20 mg PO HS 08/28/17 [History] Polyethylene Glycol 3350 [Miralax] 17 gm PO DAILY #255 gm 08/28/17 [Rx] Sertraline [Zoloft] 50 mg PO DAILY 08/28/17 [History] amLODIPine [Norvasc] 5 mg PO BID 08/28/17 [History] hydrALAZINE HCL [Hydralazine HCl] 25 mg PO TID 08/28/17 [History] Ciprofloxacin HCl [Cipro] 500 mg PO BID #28 tab 09/03/17 [Rx] metroNIDAZOLE [Flagyl] 500 mg PO TID #42 tab 09/03/17 [Rx] Follow up Appointment(s)/Referral(s): Brock Khan DO [Doctor of Osteopathic Medicine] - 09/07/17 11:45 am (On Thursday.please tell patient to be at 's office at 11:30 to fill out paperwork.) Nonstaff,Physician [Primary Care Provider] - 1-2 days Patient Instructions/Handouts: Cholecystitis (GEN), Gallstones (DC) Activity/Diet/Wound Care/Special Instructions: low fat diet Discharge Disposition: HOME SELF-CARE
--- NOTE | 2017-09-03 16:38 | PN ---
PROGRESS NOTE DATE OF SERVICE: 09/03/2017 INTERVAL HISTORY: This 82-year-old gentleman who was admitted with acute abdominal pain with cholelithiasis and cholecystitis is improving significantly. Patient had history of recent stroke, had carotid stent and now the patient is on Plavix also. Dr. Khan is recommending planning the patient to be discharged home and bringing back as an outpatient. The recent stent placement is also considered, with Dr. Khan going to be in touch with the interventional surgeon who performed the carotid stent placement. No chest pain. No palpitations. No fever. EXAM: Alert, oriented x3. Pulse 67, blood pressure 130/70, respirations 18, temperature 97.8. HEENT: Conjunctivae normal. NECK: No jugular venous distention. CARDIOVASCULAR: S1, S2 muffled. RESPIRATORY: Breath sounds diminished in the bases. A few rhonchi. No crackles. ABDOMEN: Soft, nontender. No mass palpable. LEGS: No edema. NERVOUS SYSTEM: No focal deficits. The patient is dysphasic. LABS: WBC is 8.6, hemoglobin is 13.1. Sodium 139, potassium 5.2. UA noted. ASSESSMENT: 1. Acute abdominal pain with acute cholelithiasis and possible cholecystitis. 2. Hyponatremia. 3. History of recent stroke with dysphasia and carotid stent. 4. Hypertension. 5. Hyperlipidemia. 6. History of myocardial infarction. 7. History depression. RECOMMENDATIONS AND DISCUSSION: Continue current management. Continue monitoring and symptomatic treatment. Otherwise at this time, I recommend to continue with the medications. Hold Plavix if okay with interventional surgeon. Otherwise, continue to monitor. Guarded prognosis. Further recommendations to follow. MMODL / IJN: [id number] /
== END 2017-09-03 12:50 | disposition home or self-care (01) | DRG 445 ==
LOC: EC 07:05 → 5ONC 10:44
PROVIDERS: ADMIT Student in an Organized Health Care Education/Training Program; ATTEND Student in an Organized Health Care Education/Training Program
DX: K80.12 Calculus of gallbladder with acute and chronic cholecystitis without obstruction (principal); E87.1 Hypo-osmolality and hyponatremia; I69.951 Hemiplegia and hemiparesis following unspecified cerebrovascular disease affecting right dominant side; I69.920 Aphasia following unspecified cerebrovascular disease; I10 Essential (primary) hypertension; E78.5 Hyperlipidemia, unspecified; I25.2 Old myocardial infarction; K59.00 Constipation, unspecified; F32.9 Major depressive disorder, single episode, unspecified; Z87.891 Personal history of nicotine dependence; Z79.02 Long term (current) use of antithrombotics/antiplatelets; Z79.82 Long term (current) use of aspirin; Z79.899 Other long term (current) drug therapy
CPT/HCPCS: 36415; 71020; 74000; 76705; 78226; 80053; 81001; 82150; 83690; 85025; 85610; 85730; 87040; 93005; 96361; 96374; 96375; 99285